=== PATIENT | male | born 1975 | race Caucasian/White ===

== ENCOUNTER → 2016-11-01 | Emergency (ER) | payer OTHER ==
[~2016-11-01] VITALS: Ht 182.9 cm; Wt 91.6 kg
[~2016-11-01] MED LIST: CLCX200C; FNT50TD; IBP800T; LORazepam 0.5 MG (ATIVAN) TABLET ONE; LORazepam 1 MG (ATIVAN) TAB PO ONE; OLANZapine 5 MG ODT (ZyPREXA ZYDIS) PO ONE; TIZAN4T
[2016-11-01 15:13] VITALS: BP 140/99
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
[2016-11-01 16:34] LABS: BASOPHILS % (AUTO) 1 % (0-10); EOSINOPHILS # (AUTO) 0.1 10^3/uL (0.0-0.3); EOSINOPHILS % (AUTO) 1 % (0-10); LYMPHOCYTES # (AUTO) 0.7 X 10^3 (1.0-4.0); LYMPHOCYTES % (AUTO) 14 % (12-44); MEAN CORPUSCULAR HEMOGLOBIN 29 PG (25-34); MEAN CORPUSCULAR HGB CONC 34 G/DL (32-36); MEAN CORPUSCULAR VOLUME 86 FL (80-99); MEAN PLATELET VOLUME 9.7 FL (7.4-10.4); MONOCYTES # (AUTO) 0.5 X 10^3 (0.0-1.0); MONOCYTES % (AUTO) 9 % (0-12); NEUTROPHILS # (AUTO) 3.8 X 10^3 (1.8-7.8); NEUTROPHILS % (AUTO) 75 % (42-75); PLATELET COUNT 331 10^3/uL (130-400); RED BLOOD COUNT 5.05 10^6/uL (4.35-5.85); RED CELL DISTRIBUTION WIDTH 13.5 % (10.0-14.5); WHITE BLOOD COUNT 5.1 10^3/uL (4.3-11.0)
[2016-11-01 16:50] LABS: ALANINE AMINOTRANSFERASE 39 U/L (0-55); ALBUMIN 4.3 GM/DL (3.2-4.5); ALCOHOL < 10 MG/DL (<10); ANION GAP 7 MMOL/L (5-14); ASPARTATE AMINO TRANSFERASE 34 U/L (5-34); BILIRUBIN,TOTAL 0.6 MG/DL (0.1-1.0); BLOOD UREA NITROGEN 20 MG/DL (7-18); BUN/CREATININE RATIO 18; CALCIUM 9.6 MG/DL (8.5-10.1); CARBON DIOXIDE 24 MMOL/L (21-32); CHLORIDE 108 MMOL/L (98-107); CREATININE SERUM 1.13 MG/DL (0.60-1.30); GFR ESTIMATED > 60; GLUCOSE 95 MG/DL (70-105); POTASSIUM 4.1 MMOL/L (3.6-5.0); SALICYLATE < 5.0 MG/DL (5.0-20.0); SODIUM 139 MMOL/L (135-145); TOTAL PROTEIN 7.6 GM/DL (6.4-8.2)
[2016-11-01 16:52] LABS: ACETAMINOPHEN < 10 UG/ML (10-30)
[2016-11-01 17:26] LABS: BILIRUBIN,URINE NEGATIVE (NEGATIVE); KETONES,URINE 1+ (NEGATIVE); LEUKOCYTE ESTERASE ,URINE 1+ (NEGATIVE); NITRITE,URINE NEGATIVE (NEGATIVE); PH,URINE 5 (5-9); PROTEIN,URINE 2+ (NEGATIVE); UROBILINOGEN,URINE 1 MG/DL (NORMAL)
[2016-11-01 17:44] LABS: CALCIUM OXALATE CRYSTALS,UR LARGE /LPF
== END | disposition short-term general hospital (02) ==
LOC: EDUNIT# 14:42 → ER 14:47
DX: F23 Brief psychotic disorder (principal); R44.1 Visual hallucinations; F41.9 Anxiety disorder, unspecified; F43.10 Post-traumatic stress disorder, unspecified; F32.9 Major depressive disorder, single episode, unspecified; F15.10 Other stimulant abuse, uncomplicated; Z87.891 Personal history of nicotine dependence
CPT/HCPCS: 36415; 80053; 80306; 80320; 80329; 81000; 85025; 93005

== ENCOUNTER 2016-12-17 20:46 | Observation (INO) | payer SELFPAY ==
[~2016-12-17] VITALS: Ht 182.9 cm; Wt 90.7 kg
[~2016-12-17 20:46] MED LIST changes: -LORazepam 0.5 MG (ATIVAN) TABLET ONE; -LORazepam 1 MG (ATIVAN) TAB PO ONE; -OLANZapine 5 MG ODT (ZyPREXA ZYDIS) PO ONE
[2016-12-17] MEDS ORDERED: WATER (STERILE) FOR INJECTION 20 ML ONE (21:53)
--- NOTE | 2016-12-17 21:53 | ED Psychosocial ---
General Chief Complaint: Psych/Social Disorder Stated Complaint: MENTAL EVALUATION Nursing Triage Note: PT TO ED 10 PER TRISTAN WILLIS FOR C/O SUICIDAL IDEATIONS. PER OFFICER, PT WAS PULLED FROM HIS 6TH FLOOR APARTMENT AFTER ATTEMPTING TO JUMP FROM THE WINDOW. PT REPORTS HE HAS NOT TAKEN HIS MEDS IN ALMOST 2 WKS AND HAS "AN EXTENSIVE PSYCH HX" PER [employer] Source: patient Exam Limitations: no limitations History of Present Illness Time seen by provider: 21:49 Initial Comments Patient presents to ER by police custody after he was trying to kill himself by cutting out a window. His been having a very terrible time recently his broken left him and he lost his job and same day and now he is suicidal so he has taken some amphetamines by IV this morning to try and work encouraged to jump out of a 6 story window. He did not actually junk. He's had 2 previous suicide attempts in the past one time by fentanyl patches and one time by overdose of opiates. He has a history of heroin addiction as well as amphetamine use. He also uses Paxil, metoprolol, clonidine, mirtazapine but he says 3 or 4 weeks ago he stopped using it. He says he's gotten several years in the past without using his medications to control the indistinct voices that he hears as well as the black and white and sometimes color visual hallucinations that he will see. They Paxil interferes with his sexual urge. He says in the past couple days however since stopping the medications she started having audiovisual hallucinations again. He stopped the medications cold turkey. He does not follow with a primary care physician rather he usually goes to either [facility] or ERs to get medication refills. He is recently had his Paxil as well as mirtazapine reduced for side effects. He is not currently having any hallucinations however he is still feeling suicidal and down. He admits to anhedonia. Allergies and Home Medications Allergies Coded Allergies: guaifenesin (Unverified Allergy, Mild, HIVES, 12/10/08) hydrocodone (Unverified Allergy, Mild, HIVES, 12/10/08) midazolam (Unverified Allergy, Mild, BLACK OUTS, 12/10/08) phenylephrine (Unverified Allergy, Mild, HIVES, 12/10/08) No Known Drug Allergies (Verified , 04/19/08) Home Medications Celecoxib 200 Mg Cap, (Reported) Fentanyl 1 Ea Patch, (Reported) Ibuprofen 800 Mg Tab, (Reported) Tizanidine Hcl 4 Mg Tab, (Reported) Constitutional: No chills, No diaphoresis EENTM: No ear pain, No eye pain Respiratory: No cough, No short of breath Cardiovascular: No chest pain, No palpitations Gastrointestinal: No abdominal pain, No constipation, No diarrhea, No nausea, No vomiting Genitourinary: No discharge, No dysuria Musculoskeletal: No back pain, No joint pain Skin: No pruritus, No rash Psychiatric/Neurological: Denies Headache, Denies Numbness, Denies Paresthesia Past Vxhpohp-Khtkie-Wcixgt Hx Patient Social History Alcohol Use: Denies Use Recreational Drug Use: Yes Drug of Choice: METH, MARIJUANA Smoking Status: Current Everyday Smoker Type Used: Cigarettes, Smokeless Tobacco 2nd Hand Smoke Exposure: Yes Recent Foreign Travel: No Contact w/Someone Who Travel: No Recent Infectious Disease Expo: No Recent Hopitalizations: No Physical Abuse: No Sexual Abuse: No Mistreated: No Fear: No Seasonal Allergies Seasonal Allergies: No Surgeries History of Surgeries: Yes (ESOPHEAGL SX) Surgeries: Gallbladder Respiratory History of Respiratory Disorde: No Cardiovascular History of Cardiac Disorders: No Neurological History of Neurological Disord: No Reproductive System Hx Reproductive Disorders: No Gastrointestinal History of Gastrointestinal Di: No Musculoskeletal History of Musculoskeletal Dis: Yes Endocrine History of Endocrine Disorders: No Psychosocial History of Psychiatric Problem: Yes Behavioral Health Disorders: Anxiety, PTSD, Depression Suicide Risk Score: 0 Blood Transfusions History of Blood Disorders: No Family Medical History Significant Family History: No Pertinent Family Hx Physical Exam Vital Signs Vital Sign - Last 12Hours 12/17/16 21:12 Temp 96.6 Pulse 97 Resp 16 B/P (MAP) 141/108 Pulse Ox 100 O2 Delivery Room Air Capillary Refill : Less Than 3 Seconds General Appearance: WD/WN, no apparent distress HEENT: PERRL/EOMI, pharynx normal Neck: non-tender, normal inspection Respiratory: chest non-tender, lungs clear, normal breath sounds Cardiovascular: normal peripheral pulses, regular rate, rhythm, no edema Peripheral Pulses: 2+ Dorsalis Pedis (R), 2+ Left Dors-Pedis (L), 2+ Radial Pulses (R), 2+ Radial Pulses (L) Gastrointestinal: non tender, soft Extremities: non-tender, normal capillary refill Neurologic/Psychiatric: alert, oriented x 3 Appearance/Memory: appropriate appearance, appropriate insight, neat, no memory impairment, No denies illness Behavior/Eye Contact: cooperative, good eye contact, normal speech Thoughts/Hallucinations: normal thought pattern, auditory hallucinations, No delusions, No grandiose, No incoherent, No obsessive, No paranoid, No persecution, No phobic, No taoist Skin: normal color, warm/dry Progress/Results/Core Measures Results/Orders Lab Results Laboratory Tests Test 12/17/16 22:01 12/17/16 22:11 Range/Units White Blood Count 10.8 4.3-11.0 10^3/uL Red Blood Count 5.17 4.35-5.85 10^6/uL Hemoglobin 15.1 13.3-17.7 G/DL Hematocrit 44 40-54 % Mean Corpuscular Volume 86 80-99 FL Mean Corpuscular Hemoglobin 29 25-34 PG Mean Corpuscular Hemoglobin Concent 34 32-36 G/DL Red Cell Distribution Width 13.2 10.0-14.5 % Platelet Count 351 130-400 10^3/uL Mean Platelet Volume 9.1 7.4-10.4 FL Neutrophils (%) (Auto) 78 H 42-75 % Lymphocytes (%) (Auto) 9 L 12-44 % Monocytes (%) (Auto) 12 0-12 % Eosinophils (%) (Auto) 0 0-10 % Basophils (%) (Auto) 0 0-10 % Neutrophils # (Auto) 8.4 H 1.8-7.8 X 10^3 Lymphocytes # (Auto) 1.0 1.0-4.0 X 10^3 Monocytes # (Auto) 1.3 H 0.0-1.0 X 10^3 Eosinophils # (Auto) 0.0 0.0-0.3 10^3/uL Basophils # (Auto) 0.0 0.0-0.1 10^3/uL Sodium Level 137 135-145 MMOL/L Potassium Level 3.8 3.6-5.0 MMOL/L Chloride Level 101 98-107 MMOL/L Carbon Dioxide Level 20 L 21-32 MMOL/L Anion Gap 16 H 5-14 MMOL/L Blood Urea Nitrogen 20 H 7-18 MG/DL Creatinine 1.35 H 0.60-1.30 MG/DL Estimat Glomerular Filtration Rate 59 BUN/Creatinine Ratio 15 Glucose Level 112 H 70-105 MG/DL Calcium Level 10.7 H 8.5-10.1 MG/DL Total Bilirubin 0.9 0.1-1.0 MG/DL Aspartate Amino Transf (AST/SGOT) 26 5-34 U/L Alanine Aminotransferase (ALT/SGPT) 23 0-55 U/L Alkaline Phosphatase 98 40-136 U/L Total Protein 8.6 H 6.4-8.2 GM/DL Albumin 4.7 H 3.2-4.5 GM/DL Salicylates Level < 5.0 L 5.0-20.0 MG/DL Acetaminophen Level < 10 L 10-30 UG/ML Serum Alcohol < 10 <10 MG/DL Urine Color YELLOW Urine Clarity SLIGHTLY CLOUDY Urine pH 5 5-9 Urine Specific [place] 1.030 H 1.016-1.022 Urine Protein 2+ H NEGATIVE Urine Glucose (UA) NEGATIVE NEGATIVE Urine Ketones 1+ H NEGATIVE Urine Nitrite NEGATIVE NEGATIVE Urine Bilirubin NEGATIVE NEGATIVE Urine Urobilinogen NORMAL NORMAL MG/DL Urine Leukocyte Esterase 1+ H NEGATIVE Urine RBC (Auto) 2+ H NEGATIVE Urine RBC 2-5 H /HPF Urine WBC 5-10 H /HPF Urine Crystals NONE /LPF Urine Bacteria NEGATIVE /HPF Urine Casts PRESENT /LPF Urine Hyaline Casts 5-10 H /LPF Urine Mucus LARGE H /LPF Urine Other MOD SPERM H /HPF Urine Culture Indicated YES Urine Opiates Screen NEGATIVE NEGATIVE Urine Oxycodone Screen NEGATIVE NEGATIVE Urine Methadone Screen NEGATIVE NEGATIVE Urine Propoxyphene Screen NEGATIVE NEGATIVE Urine Barbiturates Screen NEGATIVE NEGATIVE Ur Tricyclic Antidepressants Screen NEGATIVE NEGATIVE Urine Phencyclidine Screen NEGATIVE NEGATIVE Urine Amphetamines Screen POSITIVE H NEGATIVE Urine Methamphetamines Screen POSITIVE H NEGATIVE Urine Benzodiazepines Screen NEGATIVE NEGATIVE Urine Cocaine Screen NEGATIVE NEGATIVE Urine Cannabinoids Screen NEGATIVE NEGATIVE My Orders Orders - MESHA HART Ua Culture If Indicated (12/17/16 21:48) Cbc With Automated Diff (12/17/16 21:48) Comprehensive Metabolic Panel (12/17/16 21:48) Alcohol (12/17/16 21:48) Drug Screen Stat (Urine) (12/17/16 21:48) Acetaminophen (12/17/16 21:48) Salicylate (12/17/16 21:48) Ekg Tracing (12/17/16 21:48) Saline Lock/Iv-Start (12/17/16 21:48) Monitor-Rhythm Ecg Trace Only (12/17/16 21:48) Ziprasidone Injection (Geodon Injection) (12/17/16 22:00) Water (Sterile) For Injection (Sterile W (12/17/16 21:53) Urine Culture (12/17/16 22:11) Medications Given in ED Current Medications Medications Dose Ordered Sig/Marlyn Route Start Time Stop Time Status Last Admin Dose Admin Sterile Water 20 ml @ ud STK-MED ONCE .ROUTE 12/17/16 21:53 12/17/16 22:00 DC 12/17/16 22:06 1.2 MLS/HR Ziprasidone 10 mg ONCE ONCE IM 12/17/16 22:00 12/17/16 22:01 DC 12/17/16 22:06 10 MG Vital Signs/I&O Vital Sign - Last 12Hours 12/17/16 21:12 Temp 96.6 Pulse 97 Resp 16 B/P (MAP) 141/108 Pulse Ox 100 O2 Delivery Room Air Blood Pressure Mean: 119 Progress Note #1: Time: 23:10 Progress Note Left a message for [facility] Progress Note #2: Time: 00:29 Progress Note Left another message for [employer]. Called and left a message for [facility] spoke with [facility] [place] and they 're at capacity tonight. they suggest calling back in the morning. Progress Note #3: Time: 00:39 Progress Note [facility] has no capacity tonight. Michelle has still not call us back. We'll look for an observation stay and allow them to try again in the morning. Progress Note #4: Time: 00:45 Progress Note [facility] has no capacity ECG Initial ECG Impression Date: Dec 17, 2016 Initial ECG Impression Time: 22:21 Initial ECG Rate: 93 Initial ECG Rhythm: Normal Sinus Initial ECG Intervals: Normal Initial ECG Impression: Normal Initial ECG Comparisson: No Previous ECG Available Comment No ST elevation or depression. Departure Communication (Admissions) Time/Spoke to Admitting Phy: 00:42 Communication Discussed the case and need for further suicide watch and placement in the morning with Dr. Ivy. He is willing to take the patient on observation. Impression Impression: Primary Impression: Hallucinations Additional Impression: Suicidal intent Disposition: 09 ADMITTED INPATIENT Condition: Stable Admissions Decision to Admit Reason: Admit from ER (General) Decision to Admit/Date: Dec 18, 2016 Time/Decision to Admit Time: 00:43 Departure-Patient Inst. Referrals: NO,LOCAL PHYSICIAN (PCP/Family) Primary Care Physician Copy Copies To 1: MAICOL IVY MD, TITUS J Dec 17, 2016 21:52
[2016-12-17] MEDS ORDERED: ZIPRASIDONE 20 MG INJ (GEODON) VIAL IM ONE (22:00)
[2016-12-17 22:07] LABS: BASOPHILS % (AUTO) 0 % (0-10); EOSINOPHILS % (AUTO) 0 % (0-10); LYMPHOCYTES % (AUTO) 9 % (12-44); MEAN CORPUSCULAR HEMOGLOBIN 29 PG (25-34); MEAN CORPUSCULAR HGB CONC 34 G/DL (32-36); MEAN CORPUSCULAR VOLUME 86 FL (80-99); MEAN PLATELET VOLUME 9.1 FL (7.4-10.4); MONOCYTES # (AUTO) 1.3 X 10^3 (0.0-1.0); MONOCYTES % (AUTO) 12 % (0-12); NEUTROPHILS # (AUTO) 8.4 X 10^3 (1.8-7.8); NEUTROPHILS % (AUTO) 78 % (42-75); PLATELET COUNT 351 10^3/uL (130-400); RED BLOOD COUNT 5.17 10^6/uL (4.35-5.85); RED CELL DISTRIBUTION WIDTH 13.2 % (10.0-14.5); WHITE BLOOD COUNT 10.8 10^3/uL (4.3-11.0)
[2016-12-17 22:20] LABS: BILIRUBIN,URINE NEGATIVE (NEGATIVE); KETONES,URINE 1+ (NEGATIVE); LEUKOCYTE ESTERASE ,URINE 1+ (NEGATIVE); NITRITE,URINE NEGATIVE (NEGATIVE); PH,URINE 5 (5-9); PROTEIN,URINE 2+ (NEGATIVE); UROBILINOGEN,URINE NORMAL (NORMAL)
[2016-12-17 22:31] LABS: ACETAMINOPHEN < 10 UG/ML (10-30); ALANINE AMINOTRANSFERASE 23 U/L (0-55); ALBUMIN 4.7 GM/DL (3.2-4.5); ALCOHOL < 10 MG/DL (<10); ANION GAP 16 MMOL/L (5-14); ASPARTATE AMINO TRANSFERASE 26 U/L (5-34); BILIRUBIN,TOTAL 0.9 MG/DL (0.1-1.0); BLOOD UREA NITROGEN 20 MG/DL (7-18); BUN/CREATININE RATIO 15; CALCIUM 10.7 MG/DL (8.5-10.1); CARBON DIOXIDE 20 MMOL/L (21-32); CHLORIDE 101 MMOL/L (98-107); CREATININE SERUM 1.35 MG/DL (0.60-1.30); GFR ESTIMATED 59; GLUCOSE 112 MG/DL (70-105); POTASSIUM 3.8 MMOL/L (3.6-5.0); SALICYLATE < 5.0 MG/DL (5.0-20.0); SODIUM 137 MMOL/L (135-145); TOTAL PROTEIN 8.6 GM/DL (6.4-8.2)
[2016-12-18 01:30] VITALS: BP 111/78
[2016-12-18] MEDS ORDERED: ZIPRASIDONE 20 MG INJ (GEODON) VIAL IM PRN (01:45)
[2016-12-18] MEDS ORDERED: ACETAMINOPHEN 500 MG TAB (TYLENOL) PO PRN (01:45)
[2016-12-18] MEDS ORDERED: ONDANSETRON 4 MG/2 ML (SDV) Z0FRAN IVP PRN (01:45)
[2016-12-18 04:00] VITALS: BP 109/63
[2016-12-18 08:34] VITALS: BP 104/65
--- NOTE | 2016-12-18 08:54 | Short Stay Summary-Hospitalist ---
HPI History of Present Illness: HPI/Chief Complaint Mr. Aguirre is a 41-year-old white male with reported extensive past psych history and several inpatient admissions last Michelle was brought to the emergency room by [employer] threatening to commit suicide. He recently lost his job and reports his girlfriend left him. He was apparently threatening to jump out of his [address] floor apartment window but the police had apparently little difficulty in getting him to the emergency room. He said several other suicide gestures in the past. And ask if he would consider inpatient psychiatric evaluation he states that he needs to find another job he does not want to lose his house and he denies any suicidal morning. 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 Rarely can he understand what is being said and there are nonspecific commands to harm himself or others. He finds some more annoying. Most recently been on Paxil but he did not feel that this helped and he stopped the medication due to lack of effectiveness and sexual side effects. He has a history of polysubstance abuse Tower methamphetamine which she has been recently using and narcotics including heroin in the past but he is reportedly not been recently using. Urine drug study corroborates this history. reports this abdominal leg auditory hallucinations predate drug abuse including methamphetamine. There is no apparent history of paranoia or grandiose thinking. Date Seen 12/18/16 Time Seen by Provider: 07:30 Attending Physician Maicol Ivy MD PCP No,Local Physician Referring Physician Date of Admission Dec 17, 2016 at 22:45 Home Medications & Allergies Home Medications Reviewed patient Home Medication Reconciliation Form Allergies Allergies Coded Allergies guaifenesin (Unverified Allergy, Mild, HIVES, 12/10/08) hydrocodone (Unverified Allergy, Mild, HIVES, 12/10/08) midazolam (Unverified Allergy, Mild, BLACK OUTS, 12/10/08) phenylephrine (Unverified Allergy, Mild, HIVES, 12/10/08) No Known Drug Allergies (Verified04/19/08) Past Diozvpi-Obijnt-Mbgzkl Hx Patient Social History Alcohol Use: Denies Use Recreational Drug Use: Yes Drug of Choice: METH, MARIJUANA Smoking Status: Current Everyday Smoker Type Used: Cigarettes, Smokeless Tobacco 2nd Hand Smoke Exposure: Yes Physical Abuse Screen: No Sexual Abuse: No Recent Foreign Travel: No Contact w/other who traveled: No Recent Hopitalizations: No Recent Infectious Disease Expo: No Seasonal Allergies Seasonal Allergies: No Surgeries Yes (ESOPHEAGL SX) Gallbladder Respiratory No Cardiovascular No Neurological No Reproductive System Hx Reproductive Disorders: No Genitourinary No Gastrointestinal No Musculoskeletal Yes Endocrine History of Endocrine Disorders: No Psychosocial History of Psychiatric Problem: Yes Behavioral Health Disorders: Anxiety, PTSD, Depression Integumentary History of Skin or Integumenta: No Blood Transfusions History of Blood Disorders: No Family Medical History Significant Family History: No Pertinent Family Hx Review of Systems Constitutional: no symptoms reported Physical Exam Physical Exam Vital Signs Vital Sign - Last 12Hours 12/17/16 21:12 Temp 96.6 Pulse 97 Resp 16 B/P (MAP) 141/108 Pulse Ox 100 O2 Delivery Room Air Capillary Refill : Less Than 3 Seconds General Appearance: No Apparent Distress, WD/WN Respiratory: Chest Non Tender, Lungs Clear, Normal Breath Sounds, No Accessory Muscle Use, No Respiratory Distress Cardiovascular: Regular Rate, Rhythm, No Edema, No Gallop, No JVD, No Murmur, Normal Peripheral Pulses Results Results/Procedures Lab Laboratory Tests 12/17/16 22:01 Short Stay Diagnosis Discharge Diagnosis-Short Stay Admission Diagnosis 1. Suicide gesture 2. Reactive depression. 3. Polysubstance abuse active Final Discharge Diagnosis as per above. Conclusion Plan Mr. Aguirre was admitted to the ICU for overnight monitoring. In the emergency room he was given one 10 mg dose of IV Geodon he was pleasant per nursing staff and relatively pleasant during our interview. He slept through the night upon my arrival in the morning he was lying in bed with an adult female not the girlfriend who apparently had left him. We're waiting on outpatient psych evaluation for try suspect outpatient therapy is most likely be recommended. From medical standpoint he is ready for moravian with no evidence for any significant nonpsychiatric medical problems. Tries to get set up in the [facility] as he is unlikely to be able to afford medication if it is recommended in the future. Clinical Quality Measures DVT/VTE Risk/Contraindication: Risk Factor Score Per Nursin RFS Level Per Nursing on Admit: 1=Low/No VTE PPX MAICOL IVY MD Dec 18, 2016 08:54
[2016-12-18] MEDS ORDERED: WATER (STERILE) FOR INJECTION 10 ML ONE (10:59)
[2016-12-18] MEDS ORDERED: MIRT15TA6 PO (11:03)
[2016-12-18] MEDS ORDERED: PARO20TA5 PO (11:03)
[2016-12-18] MEDS ORDERED: WATER (STERILE) FOR INJ 10 ML BTL IV PRN (11:15)
[2016-12-18 13:07] VITALS: BP 115/70
== END 2016-12-18 13:42 | disposition home or self-care (01) ==
LOC: EDUNIT# 20:46 → ER 20:48 → ICU 22:45
PROVIDERS: ADMIT Internal Medicine; ATTEND Internal Medicine
DX: R45.851 Suicidal ideations (principal); R44.0 Auditory hallucinations; F32.9 Major depressive disorder, single episode, unspecified; F15.10 Other stimulant abuse, uncomplicated; F17.210 Nicotine dependence, cigarettes, uncomplicated; Z79.899 Other long term (current) drug therapy
CPT/HCPCS: 36415; 80053; 80306; 80320; 80329; 81000; 85025; 87088; 93005; 96372; G0378